=== PATIENT | female | born 1995 | race Caucasian/White ===

== ENCOUNTER 2017-01-13 02:18 | Emergency (ER) | payer BC ==
--- NOTE | 2017-01-13 02:29 | EDM.PDOC ---
ED HPI GENERAL MEDICAL PROBLEM - General Chief Complaint: Head Injury Stated Complaint: HIT HEAD Time Seen by Provider: 01/13/17 02:21 Source of Information: Reports: Patient History Limitations: Reports: No Limitations - History of Present Illness INITIAL COMMENTS - FREE TEXT/NARRATIVE: states was running and hit head against mirror on a p/u with LOC ? denies N/V/ viz problem but unable to recal much. also admits to etoh. Frontal Head Pain Score (Numeric/FACES): 5 - Related Data Allergies Allergy/AdvReac Type Severity Reaction Status Date / Time No Known Allergies Allergy Verified 01/13/17 03:00 Home Meds: Home Meds . [No Known Home Meds] 01/13/17 [History] ED ROS GENERAL - Review of Systems Review Of Systems: ROS reveals no pertinent complaints other than HPI. ED EXAM, HEAD INJURY - Physical Exam Exam: See Below Exam Limited By: No Limitations General Appearance: Alert, WD/WN Head: Scalp Tenderness, Other (frontal ). No: Mccollum's Sign, Raccoon Eyes Nexus Criteria: Evidence of Intoxication. No: Posterior, Midline Cervical Tenderness, Altered Level of Consciousness, Focal Neurological Deficit, Painful Distraction Injuries Eyes: Bilateral Eye: PERRL (pupils ER @ 4mm) Ears: Hearing Grossly Normal Throat/Mouth: Normal Voice, No Airway Compromise Neck: Non-Tender, Full Range of Motion Respiratory: No Respiratory Distress Cardiovascular: Regular Rate, Rhythm GI/Abdominal Exam: Soft, Non-Tender Neurologic: No Motor/Sensory Deficits, Alert, Normal Mood/Affect, Oriented x 3 Skin: Normal Color, Warm/Dry - [place] Coma Score Best Eye Response ([place]): (4) Open Spontaneously Best Verbal Response ([place]): (5) Oriented Best Motor Response ([place]): (6) Obeys Commands [place] Total: 15 Course - Vital Signs Last Recorded V/S: Last Vital Signs Temp 35.9 C 01/13/17 02:24 Pulse 114 H 01/13/17 02:50 Resp 20 01/13/17 02:24 BP 146/99 H 01/13/17 02:24 Pulse Ox 95 01/13/17 02:50 - Orders/Labs/Meds Orders: Active Orders 24 hr Category Date Time Status Cervical Spine wo Cont [CT] Urgent Exams 01/13/17 02:28 Ordered Head wo Cont [CT] Urgent Exams 01/13/17 02:28 Ordered Labs: Laboratory Tests 01/13/17 01/13/17 Range/Units 02:23 02:23 Urine HCG, Qual Negative Urine Opiates Screen Negative (NEGATIVE) Ur Oxycodone Screen Negative (NEGATIVE) Urine Methadone Screen Negative (NEGATIVE) Ur Barbiturates Screen Negative (NEGATIVE) U Tricyclic Antidepress Negative (NEGATIVE) Ur Phencyclidine Scrn Negative (NEGATIVE) Ur Amphetamine Screen Negative (NEGATIVE) U Methamphetamines Scrn Negative (NEGATIVE) Urine MDMA Screen Negative (NEGATIVE) U Benzodiazepines Scrn Negative (NEGATIVE) Urine Cocaine Screen Negative (NEGATIVE) U Marijuana (THC) Screen Negative (NEGATIVE) Meds: Medications Discontinued Medications Generic Name Dose Route Start Last Admin Trade Name Freq PRN Reason Stop Dose Admin Ondansetron HCl 4 mg 01/13/17 02:56 01/13/17 02:59 Zofran Odt PO 01/13/17 02:57 4 mg ONETIME ONE Administration - Re-Assessments/Exams Free Text/Narrative Re-Assessment/Exam: 01/13/17 03:34 results discussed with pt & friend. pt feeling better after zofran Departure - Departure Time of Disposition: 03:35 Disposition: Home, Self-Care 01 Condition: Good Clinical Impression: Concussion injury of brain - Discharge Information Instructions: Concussion, Adult, [id number] Forms: ED Department Discharge Additional Instructions: 1) avoid solid foods next 24 hours 2) take tylenol for headache 3) recheck if there is any change or concern - My Orders Last 24 Hours: My Active Orders 01/13/17 02:28 Cervical Spine wo Cont [CT] Urgent Head wo Cont [CT] Urgent - Assessment/Plan Last 24 Hours: My Active Orders 01/13/17 02:28 Cervical Spine wo Cont [CT] Urgent Head wo Cont [CT] Urgent
[2017-01-13] MEDS ORDERED: Ondansetron 4 MG Tab.DIS PO ONE (02:56)
== END 2017-01-13 03:43 | disposition home or self-care (01) ==
LOC: DL.ED 02:18
DX: S06.0X9A Concussion with loss of consciousness of unspecified duration, initial encounter (principal); V09.9XXA Pedestrian injured in unspecified transport accident, initial encounter
CPT/HCPCS: 70450; 72125; 80305; 81025; 99284; A9270

== ENCOUNTER 2018-01-01 20:55 | Emergency (ER) | payer BC | END 2018-01-02 00:15 | disposition left against medical advice (07) | LOC: DL.ED 20:55 | DX: Z53.21 Procedure and treatment not carried out due to patient leaving prior to being seen by health care provider (principal) ==

== ENCOUNTER 2018-07-06 14:26 | Emergency (ER) | payer BC ==
[2018-07-06] MEDS ORDERED: cefTRIAXone 1 GM, Lidocaine 1% 2.1 ML IM ONE ×2 (16:15)
[2018-07-06] MEDS ORDERED: Azithromycin 250 MG Tab PO ONE (16:15)
--- NOTE | 2018-07-06 16:24 | EDM.PDOC ---
Scribed by Laurie Yang 07/06/18 1621 for Mihai Dodd MD ED HPI GENERAL MEDICAL PROBLEM - General Chief Complaint: Genitourinary Problem Stated Complaint: BLADDER INFECTION? Time Seen by Provider: 07/06/18 14:43 Source of Information: Reports: Patient, RN, RN Notes Reviewed History Limitations: Reports: No Limitations - History of Present Illness INITIAL COMMENTS - FREE TEXT/NARRATIVE: Patient presents to ER with complaint of pain and discharge with urination. She has a history of UTIs with similar symptoms. Pt also c/o severe sore throat x1 day, and B/L flank pain x2 days. Onset: Gradual Duration: Day(s): (2) Location: Reports: Abdomen, Other (Throat) Quality: Reports: Ache, Burning Severity: Moderate Improves with: Reports: None Worsens with: Reports: None Context: Reports: Sick Contact (suspected) Associated Symptoms: Reports: No Other Symptoms - Related Data Allergies Allergy/AdvReac Type Severity Reaction Status Date / Time No Known Allergies Allergy Verified 01/13/17 03:00 Home Meds: Home Meds . [No Known Home Meds] 01/13/17 [History] Past Medical History - Past Health History Medical/Surgical History: Denies Medical/Surgical History HEENT History: Reports: None Cardiovascular History: Reports: None Respiratory History: Reports: None Gastrointestinal History: Reports: None Genitourinary History: Reports: None DETECTIVE HOMICIDE SQUAD History: Reports: None Musculoskeletal History: Reports: None Neurological History: Reports: None Psychiatric History: Reports: None Endocrine/Metabolic History: Reports: None Hematologic History: Reports: None Immunologic History: Reports: None Oncologic (Cancer) History: Reports: None Dermatologic History: Reports: None - Infectious Disease History Infectious Disease History: Reports: None - Past Surgical History Head Surgeries/Procedures: Reports: None Social & Family History - Family History Family Medical History: Noncontributory - Tobacco Use Years of Tobacco use: 6 - Caffeine Use Caffeine Use: Reports: Soda - Recreational Drug Use Recreational Drug Use: No - Living Situation & Occupation Living situation: Reports: with Significant Other Occupation: Employed ED ROS GENERAL - Review of Systems Review Of Systems: ROS reveals no pertinent complaints other than HPI. ED EXAM, RENAL/ - Physical Exam Exam: See Below Exam Limited By: No Limitations General Appearance: Alert, WD/WN, No Apparent Distress Eye Exam: Bilateral Eye: Normal Inspection Nose: Normal Inspection, Normal Mucosa, No Blood Throat/Mouth: Normal Lips, Normal Teeth, Normal Gums, Normal Voice, No Airway Compromise, Other (pharyngeal and tonsillar erythema with exudates) Head: Atraumatic, Normocephalic Neck: Supple, Non-Tender, Full Range of Motion, Lymphadenopathy (L), Lymphadenopathy (R), Other (No nuchal rigidity.) Respiratory/Chest: No Respiratory Distress, Lungs Clear, Normal Breath Sounds, No Accessory Muscle Use, Chest Non-Tender Cardiovascular: Regular Rate, Rhythm, No Edema, Tachycardia GI/Abdominal: Normal Bowel Sounds, Soft, Non-Tender, No Organomegaly, No Distention, No Abnormal Bruit, No Mass (Female) Exam: Deferred Rectal (Female) Exam: Deferred Back Exam: Full Range of Motion, CVA Tenderness (L), CVA Tenderness (R) Extremities: Normal Inspection Neurological: Alert, Oriented, CN II-XII Intact, Normal Cognition, Normal Gait, No Motor/Sensory Deficits Psychiatric: Normal Affect, Normal Mood Skin Exam: Warm, Dry, Intact, Normal Color, No Rash Course - Vital Signs Last Recorded V/S: Last Vital Signs Temp 36.2 C 07/06/18 14:46 Pulse 104 H 07/06/18 14:46 Resp 16 07/06/18 14:46 BP 130/86 07/06/18 14:46 Pulse Ox 99 07/06/18 14:46 - Orders/Labs/Meds Orders: Active Orders 24 hr Category Date Time Status CHLAMYDIA AND GONORRHEA BY TMA Routine Lab 07/06/18 15:45 Received CULTURE URINE [RM] Stat Lab 07/06/18 15:45 Received Labs: Laboratory Tests 07/06/18 07/06/18 Range/Units 14:48 15:45 Urine Color Dark yellow (YELLOW) Urine Appearance Turbid (CLEAR) Urine pH 7.0 (5.0-9.0) Ur Specific [place] 1.025 (1.005-1.030) Urine Protein 30 H (NEGATIVE) Urine Glucose (UA) Negative (NEGATIVE) Urine Ketones Negative (NEGATIVE) Urine Occult Blood Large H (NEGATIVE) Urine Nitrite Positive H (NEGATIVE) Urine Bilirubin Negative (NEGATIVE) Urine Urobilinogen 1.0 (0.2-1.0) mg/dL Ur Leukocyte Esterase Large H (NEGATIVE) Urine RBC 50-75 H /HPF Urine WBC >100 H (0-5/HPF) /HPF Ur Epithelial Cells Moderate H /HPF Amorphous Sediment Few (0/HPF) /HPF Urine Bacteria Few (0-FEW/HPF) /HPF Urine Mucus Few H /LPF Urine HCG, Qual Negative Meds: Medications Discontinued Medications Generic Name Dose Route Start Last Admin Trade Name Maurizioq PRN Reason Stop Dose Admin Azithromycin 1,000 mg 07/06/18 16:15 Zithromax PO 07/06/18 16:16 ONETIME ONE Ceftriaxone Sodium 1 gm/ 0 gm 07/06/18 16:15 Lidocaine HCl 2.1 ml IM 07/06/18 16:16 ONETIME ONE Departure - Departure Time of Disposition: 16:19 Disposition: Home, Self-Care 01 Condition: Good Clinical Impression: Strep pharyngitis UTI (urinary tract infection) Qualifiers: Urinary tract infection type: acute pyelonephritis Qualified Code(s): N10 - Acute pyelonephritis - Discharge Information *PRESCRIPTION DRUG MONITORING PROGRAM REVIEWED*: No *COPY OF PRESCRIPTION DRUG MONITORING REPORT IN PATIENT ABBE: No Instructions: Pyelonephritis, Adult, Tgul-[id number], Strep Throat, [id number] Forms: ED Department Discharge Additional Instructions: Rx: Bactrim DS Rx: Flagyl 500mg Frequent saltwater gargles until sore throat is improved. Drink plenty of water. Follow up in clinic in 5 to 7 days for urine recheck. - My Orders Last 24 Hours: My Active Orders 07/06/18 15:45 CHLAMYDIA AND GONORRHEA BY TMA Routine CULTURE URINE [RM] Stat - Assessment/Plan Last 24 Hours: My Active Orders 07/06/18 15:45 CHLAMYDIA AND GONORRHEA BY TMA Routine CULTURE URINE [RM] Stat I have read and agree with the documentation that has been completed regarding this visit. By signing this record, I attest that the documentation was completed in my physical presence and is an accurate record of the encounter.
== END 2018-07-06 16:40 | disposition home or self-care (01) ==
LOC: DL.ED 14:26
DX: N10 Acute pyelonephritis (principal); J02.0 Streptococcal pharyngitis
CPT/HCPCS: 81001; 81025; 87086; 87088; 87186; 87491; 87591; 96372; 99283; A9270; J0696; J2001

== ENCOUNTER 2019-03-29 07:37 | Inpatient (IN) | payer BC ==
[2019-03-29] MEDS ORDERED: fentaNYL 100 MCG/2 ML SDV IVPUSH PRN (08:34)
[2019-03-29] MEDS ORDERED: Acetaminophen 325 MG Tab PO PRN (08:34)
[2019-03-29] MEDS ORDERED: Misoprostol 400 MCG (4 X 100 MCG TAB) RECTAL PRN (08:34)
[2019-03-29] MEDS ORDERED: Sodium Chloride 0.9% 10 ML Syringe FLUSH PRN (08:34)
[2019-03-29] MEDS ORDERED: Methylergonovine 0.2 MG/1 ML Amp IM PRN (08:34)
[2019-03-29] MEDS ORDERED: Ondansetron 4 MG/2 ML SDV IV PRN (08:34)
[2019-03-29] MEDS ORDERED: Tranexamic Acid 1,000 MG in Sodium Chloride 0.9% 100 ML IV PRN (08:34)
[2019-03-29] MEDS ORDERED: Lactated Ringers 1,000 ML IV ONE (08:34)
[2019-03-29] MEDS ORDERED: Carboprost Tromethamine 250 MCG/1 ML Amp IM PRN (08:34)
[2019-03-29] MEDS ORDERED: Lidocaine 1% 30 ML SDV INJECT PRN (08:34)
[2019-03-29] MEDS ORDERED: Oxytocin/Normal Saline 30 UNIT/500 ML BAG IV SCH (08:45)
[2019-03-29] MEDS ORDERED: fentaNYL 100 MCG/2 ML SDV ONE (09:00)
[2019-03-29] MEDS ORDERED: EPINEPHrine 1 MG/1 ML Amp ONE (09:01)
[2019-03-29] MEDS: Lactated Ringers 1,000 ML IV SCH ×2 (09:20→10:45)
--- NOTE | 2019-03-29 10:47 | PCM.PRNOTE ---
- Free Text/Narrative Note: Requested to provide analgesia to full term patient in severe pain. Upon entering the room, patient is sitting on edge of bed complaining of severe abdominal/pelvic pain and discomfort. Procedure was discussed with patient including adverse outcomes and expectations. Pt consented to analgesia, SAB/ IT. Pt placed into a proper sitting position. Landmarks for SAB/IT were identified and marked. Hands were washed and appropriate PPE was applied. Back was prepped with betadine x3. A sterile, transparent, fenestrated drape was applied. Excess betadine was removed. Using 3 mL of a 1% lidocaine solution , a skin wheel was placed at the L2/L3 interspace. A 24 ga (4 inch) Penc[place] spinal needle was inserted until positive for CSF. Negative for heme or paresthesias. Injected fentanyl 30 mcg, sufentanil 25 mcg, and 7.5 mg of a 0.75 % bupivacaine solution with an epi wash. Pt was placed left lateral position for approximately 20 minutes. There were zero complications or adverse outcomes. Will continue to monitor. Procedure Date & Time: 03/29/19 [id number]
--- NOTE | 2019-03-29 12:16 | HP ---
CHIEF COMPLAINT: Spontaneous rupture of membranes. HISTORY OF PRESENT ILLNESS: A 24-year-old, 1, para 0, at 37 and 3/7 weeks of her based on "early ultrasound done elsewhere" per Dr. Schuler's documentation. She reports spontaneous rupture of membranes at home around 5:30 this morning, but has not had much leaking since then. No vaginal bleeding. movement has been good. Reports she started noting contractions around 7 o'clock this morning and then came into the hospital for further evaluation. She reports no significant problems with her care. Epic notes are reviewed. Pertinent finding; she is Rh negative and did have her RhoGAM appropriately. Dating is by this early ultrasound due to a discrepancy with her last menstrual period. She does have some mild obesity. She is blood type A negative, rubella non-immune, syphilis negative, hepatitis B negative, HIV negative, gonorrhea and chlamydia negative, hepatitis C negative, thyroid test normal, clue cells on first wet prep, glucose tolerance test normal at 98, and group B Strep test was negative. PAST MEDICAL HISTORY: Depression is in the chart when she was between middle and high school. The patient and her mother report that this was more just teenage behavior problems, not true depression. She has a history of irregular menses in the past, but reports they have now been normal about every 28 to 30 days. 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 PAST SURGICAL HISTORY: Nail removal in 2004 of the right great toe, wisdom teeth extraction in 2011, and extent 6-hour extensive jaw and palate surgery for her hypoplasia. FAMILY HISTORY: Maternal grandmother and both parents alive and well. Maternal grandfather of kidney failure of unknown etiology. He was later found out to have diabetes and heart disease secondary to being on dialysis for 6 years. Paternal grandparents both of complications of alcohol abuse. SOCIAL HISTORY: The patient is living at her own home in [facility]. Her cats are staying at her mother's house. 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 The father of the baby, Roxie Garduno, is not going to be present for delivery. They did not want to go into details about the relationship status at this time. The patient denies any use of tobacco, alcohol, or drugs. MEDICATIONS: vitamin. ALLERGIES: None. REVIEW OF SYSTEMS: As listed under the history of present illness. No fever, chills, chest pain, shortness of breath, headaches, blurry vision, change in her edema, symptoms of dysuria. No bowel changes, no neurological symptoms, and no other acute concerns. PHYSICAL EXAMINATION: Vital Signs: Temperature is 98.0, blood pressure 137/96 initially, pulse of 82. HEENT: Grossly unremarkable. Heart: Regular without any murmur. Lungs: Clear to auscultation bilaterally. Abdomen: Soft and nontender. Fundal height appropriate with dates. heart tones tracing at 125 beats per minute, moderate tgvr-[id number] variability, with accelerations noted. [place] picking up contractions about every 7 minutes. Speculum exam; negative pooling, although there is some fluid present in the vagina. Cervical exam; 4 cm dilated, 95% effaced, and -2 station. Extremities: Trace edema. No erythema or tenderness. Reflexes 2+, equal. ASSESSMENT: 1. A 37 and 3/7 weeks' intrauterine in stage 1 labor. 2. 1, para 0. 3. Blood type A negative, rubella nonimmune, group B Streptococcus negative. 4. Mild obesity. PLAN: Expectant management for delivery. The patient's mother has a history of rapid labor, and we will let her get her intrathecal as soon as she has been bolused with her IV fluids. We will also get PIH panel because of the elevated blood pressure, although I suspect that that is just because of having pain with labor and I doubt that she has preeclampsia. The patient and her mother's questions have been answered. LABORATORY DATA: Hemoglobin of 12.2, platelets of 284. [facility] /[id number] MTDD
--- NOTE | 2019-03-29 12:46 | PN ---
DATE: 03/29/2019 SUBJECTIVE: The patient is doing well, resting with her intrathecal. No new concerns. OBJECTIVE: monitoring strip showed a spontaneous deceleration, ultimately lasting about 5 minutes and going down into the 60s with slow recovery. Nurse was performing scalp stimulation and not getting much of a response from that, and I checked the patient as well. She was about 5 cm dilated, 100% effaced with caput coming through the cervix and station at about -1. Turning the patient to her left side and that did not really improve the baby's heart rate. Turned the patient to her right side and then baby recovered well. I suspect that the baby may have been lying on the cord or some other similar issue that is currently looking like it has resolved on the monitoring strip. At this time, we have had a reactive tracing in between and currently sitting at a baseline heart rate of 120 beats per minute, moderate ibmw-ds-auhi variability, with accelerations present, toco showing contractions about every 3 minutes. Of note, prior to this deceleration, the Pitocin had been turned on to 2. We did turn it off, bolused her with fluids, and supply her with oxygen. Now that the baby has recovered, we did restart the Pitocin at 1 and rechecked her cervix. She is now sitting closer to 6.5 or even 7 cm, 100% effaced, and still at around -1 station. Less bloody show than we had previously. ASSESSMENT: A 37 and 3/7 weeks' with spontaneous rupture of membranes in active labor. Blood type A negative. She is rubella nonimmune and group B Streptococcus negative. She is a 1, para 0. We are status post spontaneous deceleration for about 5 minutes that seems to be recovering well at this time. PLAN: Continue expectant management for vaginal delivery. Operating crew is aware that we have a patient whose baby has had this deceleration. The patient has been informed of potential for proceeding to section and verbal consent obtained. We discussed potential for infection with plan for preoperative antibiotics, potential for bleeding to the point of requiring a blood transfusion as well as its inherent risks. Also discussed potential injury to large blood vessels, nerves, veins, internal organs and adjacent structures including, but not limited to bowel, bladder, uterus, fallopian tubes, ovaries, musculature, and any other such structures, even potential injury to the baby. Discussed potential for complications that require the patient and/or baby to be transferred to another facility for definitive care, also remote risk of . Their questions have been answered. Appropriate consent forms can be signed. [facility] /[id number] MTDD
[2019-03-29] MEDS ORDERED: Measles, Mumps & Rubella Vaccine 0.5 ML SDV SUBCUT ONE (14:15)
[2019-03-29] MEDS ORDERED: Simethicone 80 MG Tab.Chew PO PRN (14:15)
[2019-03-29] MEDS ORDERED: Benzocaine/Menthol 20%-0.5% Spray 56 GM Canister TOP PRN (14:15)
--- NOTE | 2019-03-29 14:37 | DEL ---
DATE: 03/29/2019 PREPROCEDURE DIAGNOSES: 1. A 37 and 3/7 weeks' gestation based on early ultrasound. 2. 1, para 0. 3. Blood type A negative, rubella nonimmune, group B Streptococcus negative. 4. Obesity. 5. Spontaneous rupture of membranes at home. POSTPROCEDURE DIAGNOSES: 1. A 37 and 3/7 weeks' gestation based on early ultrasound. 2. 1, now para 1-0-0-1. 3. Blood type A negative, rubella nonimmune, group B Streptococcus negative. 4. Obesity. 5. Spontaneous rupture of membranes at home. 6. Delivery of viable male . 7. Status post spontaneous vaginal delivery with second-degree laceration and right labial laceration repairs. BRIEF HISTORY: A 24-year-old female presented to the hospital after having spontaneous rupture of membranes of clear fluid followed by onset of contractions about an hour and a half later at home. When she presented to the hospital, she was 4 cm dilated and near 100% effaced, so she was admitted for delivery and received an intrathecal for pain management. Her labor course was going well. She did have 1 episode of a spontaneous deceleration down into the 60s for about 5 minutes, but with repositioning oxygen and fluids, this recovered nicely. At that time, the patient did have 2 milliunits of Pitocin running for augmentation for only about 2 to 3 minutes before the deceleration and after this was stopped, everything resolved. She was able to go on to complete and pushed for 32 minutes before delivery as below. Stage 1 was about 6 hours. DETAILS: With the patient in the dorsal lithotomy position, she delivered a viable male infant over an intact perineum. Baby had a strong vigorous cry, so he was dried, stimulated, and placed on mother's abdomen. Bulb suctioning was not necessary. The 3-vessel umbilical cord was allowed to remain intact for about a minute and a half and then doubly clamped, cut, and cord blood taken. The placenta then delivered by gentle cord traction and concomitant uterine massage. Fundus was firm. Labia and vagina were inspected and there was a right laceration of the labia present and needed repair because it was not hemostatic. There was also a second-degree perineal laceration present. Each of these were repaired in usual fashion, the labial laceration with 4-0 Vicryl and the perineal laceration with 3-0 Vicryl. Good cosmetic result and hemostasis were achieved. The patient tolerated well. ESTIMATED BLOOD LOSS: 250 mL. COMPLICATIONS: None. FINDINGS: Viable male infant. Apgars 8 and 9. Weight 2975g, 6#9oz. DISPOSITION: Mother and baby to stay in the delivery room at this time to start [id number] and . The patient's questions have been answered. [facility] /[id number] MTDD
[2019-03-29] MEDS: Ibuprofen 800 MG Tab PO PRN (15:16)
[2019-03-29] MEDS: Labetalol 100 MG Tab PO SCH (17:13)
[2019-03-30] MEDS: Labetalol 100 MG Tab PO SCH ×2 (01:40→10:46)
[2019-03-30] MEDS: Prenatal Multivitamin with Calcium/Folic Acid/Iron Tab PO SCH (10:37)
[2019-03-30] MEDS: Docusate Sodium 100 MG Cap PO PRN (10:37)
--- NOTE | 2019-03-30 13:53 | PN ---
DATE: 03/30/2019 SUBJECTIVE: Postvaginal delivery day #1. The patient is doing well, ambulating, tolerating regular diet, voiding without difficulties. Not yet had a bowel movement though passing flatus. No chest pain or shortness of breath. No symptoms of preeclampsia, and overall feels like she is doing well. The patient has elected to bottle feed her baby and she has had her RhoGAM injection and MMR vaccine and has no other concerns today. OBJECTIVE: Vital Signs: Temperature is 98.5, pulse 61, blood pressure 109/50, respiratory rate of 16, O2 saturations 96% on room air. , the patient was running in the 140s and 150s/70s for blood pressures. Maximum blood pressure was 160/72. So, she was given a dose of 100 mg of labetalol. Since then, blood pressures have been well controlled and she has not required any additional medication. Heart: Regular without murmur. Lungs: Clear to auscultation bilaterally. Abdomen: Soft, nontender. Fundus is firm and below the umbilicus. Extremities: 1+ pitting edema bilaterally. No erythema or tenderness. LABORATORY DATA: Admission hemoglobin 12.2, currently down to 10.4; platelets on admission 284, now down to 240. PIH labs were negative. Protein-creatinine ratio of 0.06. ASSESSMENT: 1. Post vaginal delivery day #1 with a second-degree right labial laceration repairs. 2. Rh negative, blood type A negative, baby's blood type A positive. She did receive her RhoGAM injection. 3. Rubella nonimmune, and she did get her MMR vaccine. 4. Obesity. 5. Transient elevated blood pressures, so gestational hypertension seems to be resolved at this time. 6. 1, now para 1-0-0-1. 7. Anemia of blood loss. PLAN: Continue normal delivery cares. Anticipate the patient will be able to be discharged home tomorrow. She will be seen by her primary care provider, Dr. Schuler. [facility] /[id number]
[2019-03-30] MEDS: Ibuprofen 800 MG Tab PO PRN (20:38)
[2019-03-31] MEDS: Docusate Sodium 100 MG Cap PO PRN (08:28)
[2019-03-31] MEDS: Prenatal Multivitamin with Calcium/Folic Acid/Iron Tab PO SCH (08:28)
[2019-03-31] MEDS: Ibuprofen 800 MG Tab PO PRN (08:33)
[2019-03-31] MEDS ORDERED: EPINEPHrine 1 MG/1 ML Amp ONE (12:56)
[2019-03-31] MEDS ORDERED: fentaNYL 100 MCG/2 ML SDV ITHECAL ONE (12:56)
--- NOTE | 2019-04-01 10:44 | DISCH ---
ADMITTING DIAGNOSES: 1. Intrauterine at 37 and 3/7 weeks. 2. Group B Streptococcus negative. 3. Spontaneous rupture of membranes at 5:30 a.m. and contractions starting at 7 a.m. on date of admission. 4. Obesity. 5. G1, P0. 6. Gestational hypertension, suspected. DISCHARGE DIAGNOSES: 1. Intrauterine at 37 and 3/7 weeks-delivered. 2. Group B Streptococcus negative. 3. Spontaneous rupture of membranes at 5:30 a.m. and contractions starting at 7 a.m. on date of admission. 4. Obesity. 5. G1, P0. 6. Gestational hypertension, suspected. 7. Second-degree perineal laceration - repaired. HISTORY OF PRESENT ILLNESS: Please see H and P. SUMMARY OF HOSPITAL COURSE: The patient was admitted on the above date with the above diagnoses. Please see progress notes and H and P done through Dr. Oliver Lanier, who admitted, delivered, and followed the patient through the morning of 03/31/2019. On 03/31/2019, date of discharge, evaluated the patient, she was tolerating p.o., ambulating, urinating, passing flatus, requesting discharge. PHYSICAL EXAMINATION: Vital Signs: Last set of vitals updated and listed in chart. Temperature 98.3, heart rate 87, blood pressure 139/88, respiratory rate 18. Lungs: Clear to auscultation bilaterally. Heart: S1 and S2. Regular rate and rhythm. Abdomen: Firm uterus -2 below umbilicus. Trace pedal edema. No calf pain. LABORATORY DATA: Hemoglobin dropped from 12.2 to 10.4 from admission to 03/30/2019. CONDITION ON DISCHARGE COMPARED TO CONDITION ON ADMISSION: Improved. DISCHARGE INSTRUCTIONS: 1. Diet: As tolerated. 2. Activity: No lifting more than 20 pounds. No sit-ups, straining, and pelvic rest for the next 6 weeks with immediate return to fertility discussed with the patient. 3. Reasons to return or go to the emergency room were discussed with the patient in detail including, but not limited to, temperature greater than 100.4, foul-smelling discharge, red hot tender breasts or increased vaginal bleeding. DISCHARGE MEDICATIONS: [id number] Tylenol or ibuprofen for pain, vitamins daily x6 weeks. FOLLOWUP: In 6 weeks . I did discuss the importance of followup and ramifications of not doing so, as well as reasons to return or go to the emergency room in the interim in regard to her baby. [facility] /[id number]
== END 2019-03-31 12:57 | disposition home or self-care (01) | DRG 560 ==
LOC: DL.OBCHECK 07:37 → DL.OB 08:35 → OBSVTOIN 13:10
PROVIDERS: ADMIT Family Medicine; ATTEND Family Medicine
PROC: 10E0XZZ Delivery of Products of Conception, External Approach (ICD-10-PCS; principal; 2019-03-29)
PROC: 0KQM0ZZ Repair Perineum Muscle, Open Approach (ICD-10-PCS; 2019-03-29)
PROC: 3E0R3BZ Introduction of Anesthetic Agent into Spinal Canal, Percutaneous Approach (ICD-10-PCS; 2019-03-29)
PROC: 3E0234Z Introduction of Serum, Toxoid and Vaccine into Muscle, Percutaneous Approach (ICD-10-PCS; 2019-03-29)
PROC: 3E0334Z Introduction of Serum, Toxoid and Vaccine into Peripheral Vein, Percutaneous Approach (ICD-10-PCS; 2019-03-29)
DX: O13.4 Gestational [pregnancy-induced] hypertension without significant proteinuria, complicating childbirth (principal); O99.214 Obesity complicating childbirth; E66.9 Obesity, unspecified; D62 Acute posthemorrhagic anemia; O70.1 Second degree perineal laceration during delivery; O76 Abnormality in fetal heart rate and rhythm complicating labor and delivery; O99.02 Anemia complicating childbirth; D64.9 Anemia, unspecified; Z3A.37 37 weeks gestation of pregnancy; Z37.0 Single live birth; Z23 Encounter for immunization
CPT/HCPCS: 36415; 59409; 81003; 82565; 82570; 83615; 84156; 84450; 84460; 84520; 84550; 85027; 85461; 86850; 86900; 86901; 90471; 90707; A9270-GY; J0171; J2001; J2590; J2790; J3010; J7120

== ENCOUNTER 2020-01-22 19:10 | Inpatient (IN) | payer BC, MEDICAID ==
[2020-01-22] MEDS ORDERED: Sodium Chloride 0.9% 10 ML Syringe FLUSH PRN ×2 (20:24→23:59)
[2020-01-22] MEDS ORDERED: Methylergonovine 0.2 MG/1 ML Amp IM PRN (20:24)
[2020-01-22] MEDS ORDERED: Misoprostol 400 MCG (4 X 100 MCG TAB) RECTAL PRN (20:24)
[2020-01-22] MEDS ORDERED: Carboprost Tromethamine 250 MCG/1 ML Amp IM PRN (20:24)
[2020-01-22] MEDS ORDERED: Lidocaine 1% 30 ML SDV INJECT PRN (20:24)
[2020-01-22] MEDS ORDERED: Tranexamic Acid 1,000 MG in Sodium Chloride 0.9% 100 ML IV PRN (20:24)
[2020-01-22] MEDS ORDERED: Acetaminophen 325 MG Tab PO PRN (20:24)
[2020-01-22] MEDS ORDERED: Lactated Ringers 1,000 ML IV ONE (20:24)
[2020-01-22] MEDS ORDERED: Ondansetron 4 MG/2 ML SDV IVPUSH PRN (20:24)
[2020-01-22] MEDS ORDERED: Oxytocin/Normal Saline 30 UNIT/500 ML BAG IV SCH (20:30)
[2020-01-22] MEDS ORDERED: hydrOXYzine HCl 25 MG Tab PO PRN (20:40)
[2020-01-22] MEDS ORDERED: fentaNYL 100 MCG/2 ML SDV IVPUSH PRN (20:40)
[2020-01-22] MEDS: Lactated Ringers 1,000 ML IV SCH ×2 (21:52→22:10)
[2020-01-22] MEDS ORDERED: EPINEPHrine 1 MG/1 ML Amp ONE ×2 (22:08→22:10)
[2020-01-22] MEDS ORDERED: fentaNYL 100 MCG/2 ML SDV ONE (22:08)
[2020-01-22] MEDS ORDERED: fentaNYL 100 MCG/2 ML SDV ITHECAL ONE (22:10)
--- NOTE | 2020-01-22 22:29 | PCM.PRNOTE ---
- Free Text/Narrative Note: Requested to provide analgesia to full term patient in severe pain. Upon entering the room, patient is sitting on edge of bed complaining of severe abdominal/pelvic pain and discomfort. Procedure was discussed with patient including adverse outcomes and expectations. Pt consented to analgesia, SAB/IT. Pt placed into a proper sitting position. Landmarks for SAB/IT were identified and marked. Hands were washed and appropriate PPE was applied. Back was prepped with betadine x3. A sterile, transparent, fenestrated drape was applied. Excess betadine was removed. Using 3 mL of a 1% lidocaine solution, a skin wheel was placed at the L2/L3 interspace. A 24 ga (4 inch) Pencan spinal needle was inserted until positive for CSF. Negative for heme or paresthesias. Injected fentanyl 30 mcg, sufentanil 25 mcg, and 7.5 mg of a 0.75% bupivacaine solution with an epi wash. Pt was placed left lateral tilt position for approximately 20 minutes. There were zero complications or adverse outcomes. Will continue to monitor. Procedure Date & Time: 01/22/20 [id number]
--- NOTE | 2020-01-22 23:20 | OBOUT ---
DATE: 01/22/2020 TIME: 1919 to 1939. REASON FOR NST: 1. Intrauterine at 38-1/7 weeks by 27-week ultrasound. 2. Active labor, suspected. 3. Group B Streptococcus negative. 4. renal ultrasound with horseshoe kidney suspected. We will check postnatally. 5. Rh negative status. 6. G2, P1-0-0-1. NST INTERPRETATION: During this time period, heart tone baseline is approximately 140 and at least two 15 x 15 beats per minute accelerations making this strip reactive as well as reassuring. Tocometer reveals potential 8 contractions during this time period, felt by the patient. Blood pressure 134/82, heart rate 106, temperature 98.3. ASSESSMENT: 1. Nonstress test, reactive as well as reassuring. 2. Tocometer reveals contractions. PLAN: Please see admit history and physical done through [facility] earlier today. Updates sticker has been applied. Currently, waiting COVID test at this time. Please see orders for further details as well. [facility] /[id number]
[2020-01-22] MEDS ORDERED: Simethicone 80 MG Tab.Chew PO PRN (23:59)
[2020-01-22] MEDS ORDERED: Zolpidem 5 MG Tab PO PRN (23:59)
[2020-01-22] MEDS ORDERED: Oxytocin 10 Units/1 ML SDV IM PRN (23:59)
[2020-01-22] MEDS ORDERED: Benzocaine/Menthol 20%-0.5% Spray 56 GM Canister TOP PRN (23:59)
[2020-01-23] MEDS: Ibuprofen 800 MG Tab PO PRN ×2 (00:25→21:02)
--- NOTE | 2020-01-23 00:54 | DEL ---
DATE: 01/22/2020 PREOPERATIVE DIAGNOSES: 1. Intrauterine at 38-1/7 sounds weeks by 27-week ultrasound. 2. Active labor upon admission. 3. Group B Streptococcus negative. 4. Horseshoe kidney suspected on renal ultrasound. 5. Rh negative. 6. 2, para 1-0-0-1. POSTOPERATIVE DIAGNOSES: 1. Intrauterine at 38-1/7 sounds weeks by 27-week ultrasound. 2. Second-degree perineal laceration, repaired. 3. Active labor upon admission. 4. Group B Streptococcus negative. 5. Horseshoe kidney suspected on renal ultrasound. 6. Rh negative. 7. 2, para 1-0-0-1. PROCEDURES PERFORMED: 1. Nonstress test. 2. Artificial rupture membranes. 3. Spontaneous vaginal delivery. 4. Second-degree perineal laceration, repaired on 01/22/2020. ANESTHESIA/ANALGESIA: The patient did receive an intrathecal in the first stage of labor. ESTIMATED BLOOD LOSS: 250 mL. FINDINGS: Female. scores and weight pending. SUMMARY OF EVENTS: The patient is a 25-year-old, G2, P 1-0-0-1, intrauterine at 38-1/7 weeks by 27-week ultrasound, admitted in active labor. Group B Streptococcus negative, Rh negative, RhoGAM given earlier in the with suspected potential horseshoe kidney on renal ultrasound. She underwent artificial rupture of membranes after being found to be in active labor. Progressed rapidly through the first stage of labor. Less than 5 hours. Received an intrathecal. Was found to be complete. I was called to the room, donned sterile gown and gloves. The patient pushing. With the next 2 contractions, vertex was delivered in ANDREW presentation, followed by anterior posterior shoulder as well as the rest if without difficulty. Mouth and nares were suctioned. Cord was doubly clamped and cut. The infant was resuscitated on the mother's abdomen. Approximately 10 mL cord blood was obtained for labs. Placenta was then delivered with gentle cord traction and fundal massage. Perineum, vagina, and perirectal areas were examined and noted to have a second-degree perineal laceration that was then repaired in the usual fashion using 3-0 Vicryl. Mother and are currently stable at the time of dictation. [facility] /[id number]
--- NOTE | 2020-01-23 06:57 | OBOUT ---
DATE: 01/22/2020 SUBJECTIVE: The patient's contractions persist. They are coming every 2 to 3 minutes, felt in the lower abdomen, increasing in frequency and intensity. Nothing seems to make them better. Time makes them worse. OBJECTIVE: heart tones are in the 140s range, felt to be reactive. Tocometer reveals contractions every 2-1/2 to 3 minutes. Vaginal exam reveals her to be 4+ cm, 85%, -1 station, vertex well applied. Artificial rupture of membranes was done after discussion with the patient, yielding copious amounts of clear fluid with some bloody show. ASSESSMENT: Intrauterine , 38-1/7 weeks by a 27-week ultrasound, in active labor, now status post artificial rupture of membranes in a group B streptococcus negative, Rh negative G2, P1-0-0-1 with a renal ultrasound of suspected horseshoe kidney, which will be done postnatally to re-evaluate. PLAN: The patient will be admitted. We will continue to follow clinically and closely. Of note, her COVID test was negative from rapid testing today. [facility] /[id number]
[2020-01-23] MEDS: Prenatal Multivitamin with Calcium/Folic Acid/Iron Tab PO SCH (08:57)
[2020-01-23] MEDS: Docusate Sodium 100 MG Cap PO PRN ×2 (08:57→21:04)
--- NOTE | 2020-01-23 10:09 | PN ---
DATE: 01/23/2020 day #1. SUBJECTIVE: The patient is tolerating p.o., ambulating, urinating, and passing flatus. OBJECTIVE: Vital Signs: Temperature 97, heart rate 72, blood pressure 122/61, and respiratory rate 16. Lungs: Clear to auscultation bilaterally. Heart: S1 and S2. Regular rhythm. Firm uterus, +1 below the umbilicus. No peripheral edema. No calf pain. LABORATORY DATA: White cell count 18.5, suspected related to demargination with the recent delivery; hemoglobin 11, compared to predelivery hemoglobin of 12.4; and platelets of 270. ASSESSMENT: 1. day #1, status post spontaneous vaginal delivery with second- degree perineal laceration, repaired. 2. Rh negative status. Baby's status is O negative. Negative antibody. So RhoGAM is not indicated. PLAN: At this point in time, we will continue to follow clinically and closely. If possible, discharge tomorrow. Did discuss with the patient, physicians covering in my absence including Dr. Hager and Dr. Espinosa. [facility] /[id number]
[2020-01-24] MEDS: Prenatal Multivitamin with Calcium/Folic Acid/Iron Tab PO SCH (09:16)
[2020-01-24] MEDS: Ibuprofen 800 MG Tab PO PRN (09:16)
--- NOTE | 2020-01-24 13:09 | PN ---
DATE: 01/24/2020 LOCATION: [facility]. SUBJECTIVE: The patient is day #2 from a vaginal delivery. Mom and baby are both doing well. was complicated by the infant having horseshoe kidney, which will need follow up. PHYSICAL EXAMINATION: Vital Signs: The patient is afebrile. Heart rate 72 to 94, blood pressure 115 to 136 systolic over 61 to 84 diastolic, respiratory rate 16, and O2 sat 98%. Fundus is firm below the umbilicus. Extremities: Have no tenderness, no edema. The patient did have a CBC drawn, prior to delivery hemoglobin was 12.4, and then after delivery hemoglobin was 11.0, platelets 270. The patient is A negative, but the baby is also Rh negative. She is rubella immune. COVID negative. ASSESSMENT AND PLAN: day 2, status post vaginal delivery. Mom and baby are both doing well. We will discharge her to home with followup with her primary for 6 week visit and then the baby will also follow up for the horseshoe kidney. [facility] /[id number]
== END 2020-01-24 12:15 | disposition home or self-care (01) | DRG 807 ==
LOC: DL.OBCHECK 19:10 → DL.OB 22:31 → OBSVTOIN 23:42
PROVIDERS: ADMIT Family Medicine; ATTEND Family Medicine
PROC: 10E0XZZ Delivery of Products of Conception, External Approach (ICD-10-PCS; principal; 2020-01-22)
PROC: 0KQM0ZZ Repair Perineum Muscle, Open Approach (ICD-10-PCS; 2020-01-22)
PROC: 10907ZC Drainage of Amniotic Fluid, Therapeutic from Products of Conception, Via Natural or Artificial Opening (ICD-10-PCS; 2020-01-22)
DX: O66.3 Obstructed labor due to other abnormalities of fetus (principal); Z37.0 Single live birth; O70.1 Second degree perineal laceration during delivery; Z3A.38 38 weeks gestation of pregnancy
CPT/HCPCS: 01967; 36415; 59409; 85027; 86900; 86901; A9270-GY; J0171; J2405; J2590; J3010; J7120; U0002

== ENCOUNTER 2021-09-16 12:04 | Emergency (ER) | payer MEDICAID ==
[2021-09-16] MEDS ORDERED: Bacitracin Oint 1 GM U/D Packet TOP ONE (12:13)
[2021-09-16] MEDS ORDERED: Lidocaine 1% 30 ML SDV INJECT ONE (12:13)
== END 2021-09-16 12:58 | disposition home or self-care (01) ==
LOC: DL.ED 12:04
DX: S61.412A Laceration without foreign body of left hand, initial encounter (principal); W25.XXXA Contact with sharp glass, initial encounter
CPT/HCPCS: 12001; 99282-25